=== PATIENT | female | born 1985 | race Two or more races ===

== ENCOUNTER 2019-08-15 17:39 | Emergency (ER) | payer MEDICAID ==
[~2019-08-15] VITALS: Ht 160 cm; Wt 61.2 kg
[~2019-08-15 17:39] MED LIST: IBUPROFEN600 MG ORAL; NKM; NORCO 5-325 TA1 EACH ORAL
[2019-08-15 17:50] VITALS: BP 120/80
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
[2019-08-15] MEDS ORDERED: Ketorolac 30mg Inj IM ONE (18:15)
--- NOTE | 2019-08-15 18:45 | NUR ---
ED Nurse Note: Patient states she is not at this time and ok to receive Toradol injection.
[2019-08-15] MEDS ORDERED: IBUPROFEN600 MG ORAL (19:00)
[2019-08-15] MEDS ORDERED: TRAMADOL HCL50 MG ORAL (19:00)
[2019-08-15] MEDS ORDERED: ROBAXIN-500MG ORAL (19:00)
[2019-08-15 20:22] LABS: APPEARANCE,URINE SLIGHTLY CLOUDY; BILIRUBIN, URINE NEGATIVE (NEGATIVE); COLOR,URINE PALE YELLOW; GLUCOSE, URINE (UA) NEGATIVE (NEGATIVE); KETONES,URINE NEGATIVE (NEGATIVE); LEUKOCYTE ESTERASE ,URINE 2+ (NEGATIVE); NITRITE,URINE NEGATIVE (NEGATIVE); PH,URINE 6 (4.5-8.0); PROTEIN,URINE NEGATIVE (NEGATIVE); UROBILINOGEN,URINE NORMAL MG/DL (0.0-1.0)
--- NOTE | 2019-08-15 21:27 | NUR ---
ED Nurse Note: pt is cleared to be d/c per ERMD, pt discharge and aftercare instruction provided w/ prescription, pt education done via discussion and handout, pt advised to follow up with pcp or return to ed if changes in condition, vss, ambulatory w/steady gait, pt verbalized understanding, pt accompanied by family left w/ all belongigns id band removed.
[2019-08-15 21:29] VITALS: BP 116/68
== END 2019-08-15 21:29 | disposition home or self-care (01) ==
LOC: EDBD 17:39 → EMR 19:22
DX: S30.0XXA Contusion of lower back and pelvis, initial encounter (principal); S06.0X0A Concussion without loss of consciousness, initial encounter; S39.012A Strain of muscle, fascia and tendon of lower back, initial encounter; V43.52XA Car driver injured in collision with other type car in traffic accident, initial encounter; Y93.9 Activity, unspecified; Y92.411 Interstate highway as the place of occurrence of the external cause
CPT/HCPCS: 81003; 81025; 87086; 96372; J1885; Z7502; 99283